=== PATIENT | male | born 1940 | race Caucasian/White ===

== ENCOUNTER → 2019-07-07 | Outpatient (CLI) | payer OTHER ==
[~2019-07-07] MED LIST: ACET325 PO; ASPI81CH PO; Prilosec Otc20 MG PO
[2019-07-07 13:10] LABS: Alanine Aminotransfer (ALT/SGP 24 U/L (12-78); Albumin, Blood 3.4 g/dL (3.4-5.0); Albumin/Globulin Ratio 1.1 (0.8-1.8); Alk Phos 86 U/L (50-136); Anion Gap 9 mmol/L (6-16); Aspartate Aminotrans (AST/SGOT 17 U/L (12-37); Bilirubin, Total 0.6 mg/dL (0.1-1.0); Blood Urea Nitrogen 8 mg/dL (8-24); Bun/Creatinine Ratio 13.8 (12.0-20.0); CO2, Blood 23 mmol/L (21-32); Calcium, Blood 8.4 mg/dL (8.5-10.1); Chloride, Blood 95 mmol/L (98-108); Creatinine, Blood 0.58 mg/dL (0.60-1.20); Globulin, Blood 3.1 g/dL (2.2-4.0); Glomerular Filtration Rate >60 (60-); Glucose, Blood 103 mg/dL (70-99); Potassium, Blood 4.3 mmol/L (3.5-5.5); Sodium, Blood 127 mmol/L (136-145); Total Protein, Blood 6.5 g/dL (6.4-8.2)
== END | disposition home or self-care (01) ==
LOC: LAB 09:45 → LAB SHORT 09:45
PROVIDERS: Internal Medicine Hematology & Oncology
DX: I10 Essential (primary) hypertension (principal); R53.81 Other malaise; R53.83 Other fatigue
CPT/HCPCS: 80053

== ENCOUNTER 2020-11-25 09:12 | Emergency (ER) | payer OTHER ==
[~2020-11-25] VITALS: Ht 180.3 cm; Wt 97.5 kg
== END 2020-11-25 10:42 | disposition home or self-care (01) ==
LOC: ER 09:12
DX: S70.02XA Contusion of left hip, initial encounter (principal); W01.198A Fall on same level from slipping, tripping and stumbling with subsequent striking against other object, initial encounter; Y93.01 Activity, walking, marching and hiking; Y92.828 Other wilderness area as the place of occurrence of the external cause
CPT/HCPCS: 73502; 99283-25

== ENCOUNTER 2021-09-26 10:17 | Emergency (ER) | payer OTHER ==
[~2021-09-26] VITALS: Ht 177.8 cm; Wt 97.5 kg
[2021-09-26 11:05] LABS: BASOPHILS ABSOLUTE AUTO 0.05 K/mm3 (0.00-0.23); BASOPHILS PERCENT AUTO 1 % (0-2); EOSINOPHILS ABSOLUTE AUTO 0.12 K/mm3 (0.00-0.68); EOSINOPHILS PERCENT AUTO 2 % (0-6); Hematocrit 42.9 % (37.0-53.0); IMMATURE GRAN ABSOLUTE AUTO 0.02 K/mm3 (0.00-0.10); IMMATURE GRAN PERCENT AUTO 0 % (0-1); LYMPHOCYTES ABSOLUTE AUTO 1.34 K/mm3 (0.84-5.20); LYMPHOCYTES PERCENT AUTO 19 % (21-46); MONOCYTES ABSOLUTE AUTO 0.68 K/mm3 (0.16-1.47); MONOCYTES PERCENT AUTO 10 % (4-13); Mean Corpuscular HGB 30.4 pg (26.0-34.0); Mean Corpuscular Volume 87 fL (80-100); Mean Platelet Volume 9.3 fL (9.1-12.4); NEUTROPHILS ABSOLUTE AUTO 4.97 K/mm3 (1.96-9.15); NEUTROPHILS PERCENT AUTO 69 % (41-73); Platelet Count 241 K/mm3 (150-400); RDW Coefficient Variation 13.3 % (11.7-14.2); RDW Standard Deviation 43.3 fL (35.1-46.3); Red Blood Cell Count 4.93 M/mm3 (4.30-5.90); White Blood Cell Count 7.18 K/mm3 (4.00-11.30)
[2021-09-26 11:31] LABS: Alanine Aminotransfer (ALT/SGP 30 U/L (12-78); Albumin, Blood 3.2 g/dL (3.4-5.0); Albumin/Globulin Ratio 0.8 (0.8-1.8); Alk Phos 68 U/L (50-136); Anion Gap 6 mmol/L (6-16); Aspartate Aminotrans (AST/SGOT 17 U/L (12-37); Bilirubin, Total 0.4 mg/dL (0.1-1.0); Blood Urea Nitrogen 11 mg/dL (8-24); Bun/Creatinine Ratio 17.7 (12.0-20.0); CO2, Blood 25 mmol/L (21-32); Chloride, Blood 100 mmol/L (98-108); Creatinine, Blood 0.62 mg/dL (0.60-1.20); Globulin, Blood 3.8 g/dL (2.2-4.0); Glomerular Filtration Rate >60 (60-); Glucose, Blood 103 mg/dL (70-99); Magnesium, Blood 1.8 mg/dL (1.6-2.4); Potassium, Blood 4.1 mmol/L (3.5-5.5); Sodium, Blood 131 mmol/L (136-145); Troponin I <0.015 ng/mL (0.000-0.040)
== END 2021-09-26 16:35 | disposition home or self-care (01) ==
LOC: ER 10:17
PROVIDERS: Physician Assistant
DX: R29.898 Other symptoms and signs involving the musculoskeletal system (principal); R06.02 Shortness of breath; E87.1 Hypo-osmolality and hyponatremia
CPT/HCPCS: 36415; 71046; 80053; 83735; 83880; 84484; 85025; 93005; 93010; 99284-25

== ENCOUNTER → 2021-10-05 | Outpatient (CLI) | payer OTHER ==
[2021-10-10 13:30] LABS: Potassium, Blood 4.9 mmol/L (3.5-5.5)
== END ==
LOC: LAB SHORT 10:00
PROVIDERS: Nurse Practitioner Family
DX: E87.1 Hypo-osmolality and hyponatremia (principal)
CPT/HCPCS: 80051

== ENCOUNTER 2021-11-17 15:00 | Inpatient (IN) | payer OTHER ==
[~2021-11-17] VITALS: Ht 177.8 cm; Wt 99.8 kg
[~2021-11-17 15:00] MED LIST changes: -CHLO25B PO; -CODACE30 PO; -CYCL10 PO; -MASOPHEN325 M3 PO; -MELO7.5 PO; -METHOTREXATE2.5 M6 PO; -SODCHL1 PO; -TAMSULOSIN HCL0.4 M1 PO
[2021-11-17] MEDS ORDERED: CODACE30 PO (15:47)
[2021-11-17] MEDS ORDERED: CHLO25B PO (15:48)
[2021-11-17] MEDS ORDERED: CYCL10 PO (15:48)
[2021-11-17] MEDS ORDERED: MELO7.5 PO (15:49)
[2021-11-17] MEDS ORDERED: METHOTREXATE2.5 M6 PO (15:55)
[2021-11-17] MEDS ORDERED: TAMSULOSIN HCL0.4 M1 PO (15:56)
[2021-11-17] MEDS ORDERED: SODCHL1 PO (15:56)
[2021-11-17] MEDS ORDERED: MASOPHEN325 M3 PO (15:57)
[2021-11-17 16:40] LABS: BASOPHILS ABSOLUTE AUTO 0.02 K/mm3 (0.00-0.23); BASOPHILS PERCENT AUTO 0 % (0-2); EOSINOPHILS ABSOLUTE AUTO 0.03 K/mm3 (0.00-0.68); EOSINOPHILS PERCENT AUTO 0 % (0-6); Hematocrit 40.8 % (37.0-53.0); Hemoglobin 15.3 g/dL (13.5-17.5); IMMATURE GRAN ABSOLUTE AUTO 0.06 K/mm3 (0.00-0.10); IMMATURE GRAN PERCENT AUTO 1 % (0-1); LYMPHOCYTES ABSOLUTE AUTO 1.03 K/mm3 (0.84-5.20); LYMPHOCYTES PERCENT AUTO 8 % (21-46); MONOCYTES ABSOLUTE AUTO 1.08 K/mm3 (0.16-1.47); MONOCYTES PERCENT AUTO 8 % (4-13); Mean Corpuscular HGB 30.1 pg (26.0-34.0); Mean Corpuscular HGB Conc 37.5 g/dL (31.5-36.5); Mean Corpuscular Volume 80 fL (80-100); Mean Platelet Volume 9.3 fL (9.1-12.4); NEUTROPHILS ABSOLUTE AUTO 10.94 K/mm3 (1.96-9.15); NEUTROPHILS PERCENT AUTO 83 % (41-73); Platelet Count 175 K/mm3 (150-400); RDW Coefficient Variation 12.3 % (11.7-14.2); RDW Standard Deviation 35.5 fL (35.1-46.3); Red Blood Cell Count 5.08 M/mm3 (4.30-5.90); White Blood Cell Count 13.16 K/mm3 (4.00-11.30)
[2021-11-17 17:13] LABS: Magnesium, Blood 1.8 mg/dL (1.6-2.4); Troponin I <0.015 ng/mL (0.000-0.040)
[2021-11-17 17:18] LABS: Influenza A, PCR NEGATIVE (NEGATIVE); Influenza B, PCR NEGATIVE (NEGATIVE); Resp Syncytial Virus, PCR NEGATIVE (NEGATIVE)
[2021-11-17 17:30] LABS: Albumin, Blood 2.9 g/dL (3.4-5.0); Anion Gap 12 mmol/L (6-16); Blood Urea Nitrogen 11 mg/dL (8-24); Bun/Creatinine Ratio 20.3 (12.0-20.0); CO2, Blood 21 mmol/L (21-32); Calcium, Blood 8.1 mg/dL (8.5-10.1); Chloride, Blood 83 mmol/L (98-108); Creatinine, Blood 0.54 mg/dL (0.60-1.20); Glomerular Filtration Rate >60 (60-); Glucose, Blood 125 mg/dL (70-99); Phosphorus, Blood 2.5 mg/dL (2.5-4.9); Potassium, Blood 2.8 mmol/L (3.5-5.5); Sodium, Blood 116 mmol/L (136-145)
[2021-11-17 17:43] LABS: SARS-Cov-2 (COVID-19) PCR, MMC POSITIVE (NEGATIVE)
[2021-11-17 17:48] LABS: Uric Acid, Blood 2.2 mg/dL (3.5-7.2)
[2021-11-17 17:49] LABS: Thyroid Stimulating Hormone 1.17 uIU/mL (0.360-4.800)
--- NOTE | 2021-11-17 18:48 | NUR ---
PT ARRIVED TO ROOM, ASSISTED TO BED WITH X2 ASSIST. PT IS PLEASANT, APPEARS FORGETFUL, BED ALARM ON. IV FLUIDS AND K+ RUNNING PER EMAR. PT PROVIDED WITH SNACKS. ON ROOM AIR, O2 >95%, INTERMITTENT COUGH. LUNG SOUNDS DIM IN ALL [place], CAP REFILL WNL ON ALL EXTREMITIES, PUPILS WNL. CALL LIGHT WITHIN REACH, WCTM.
[2021-11-17 21:20] LABS: Albumin, Blood 3.2 g/dL (3.4-5.0); Anion Gap 13 mmol/L (6-16); Blood Urea Nitrogen 10 mg/dL (8-24); Bun/Creatinine Ratio 17.3 (12.0-20.0); CO2, Blood 25 mmol/L (21-32); Calcium, Blood 8.8 mg/dL (8.5-10.1); Chloride, Blood 84 mmol/L (98-108); Creatinine, Blood 0.58 mg/dL (0.60-1.20); Glomerular Filtration Rate >60 (60-); Glucose, Blood 131 mg/dL (70-99); Phosphorus, Blood 2.4 mg/dL (2.5-4.9); Potassium, Blood 2.8 mmol/L (3.5-5.5); Sodium, Blood 122 mmol/L (136-145)
[2021-11-18 01:38] LABS: Anion Gap 11 mmol/L (6-16); Blood Urea Nitrogen 11 mg/dL (8-24); Bun/Creatinine Ratio 18.6 (12.0-20.0); CO2, Blood 26 mmol/L (21-32); Calcium, Blood 8.5 mg/dL (8.5-10.1); Chloride, Blood 88 mmol/L (98-108); Creatinine, Blood 0.59 mg/dL (0.60-1.20); Glomerular Filtration Rate >60 (60-); Glucose, Blood 109 mg/dL (70-99); Phosphorus, Blood 2.4 mg/dL (2.5-4.9); Potassium, Blood 3.2 mmol/L (3.5-5.5); Sodium, Blood 125 mmol/L (136-145)
[2021-11-18 05:04] LABS: Albumin, Blood 3.3 g/dL (3.4-5.0); Anion Gap 7 mmol/L (6-16); Blood Urea Nitrogen 9 mg/dL (8-24); Bun/Creatinine Ratio 13.8 (12.0-20.0); CO2, Blood 30 mmol/L (21-32); Chloride, Blood 86 mmol/L (98-108); Creatinine, Blood 0.65 mg/dL (0.60-1.20); Glomerular Filtration Rate >60 (60-); Glucose, Blood 121 mg/dL (70-99); Phosphorus, Blood 2.1 mg/dL (2.5-4.9); Potassium, Blood 3.2 mmol/L (3.5-5.5); Sodium, Blood 123 mmol/L (136-145)
--- NOTE | 2021-11-18 06:19 | NUR ---
SHIFT SUMMARY ASSUMED CARE OF PT AT 1900. PT HAS BECOME MORE ORIENTED SINCE THE START OF SHIFT. PT STATES HE IS FEELING MUCH BETTER. PT IS ABLE TO STAND AT BEDSIDE NOW AND USE THE URINAL UNASSISTED, WHERE BEFORE HE NEEDED 1P MINIMAL ASSIST. PT BP WAS SLIGHTLY ELEVATED AT START OF SHIFT BUT AFTER GIVEN AIN MEDCATION FOR PT ARTHRITIS PT WAS ABLE TO SLEEP BETTER AND BP DECREASED. PT REMAINED ON RA. 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 DR DOAN WAS CALLED SEVERAL TIMES WITH STAT SODIUM LEVELS AND WATCHING CLOSELY, ALONG WITH CHANGING MEDICATIONS TO FIT TREATMENT. CALL LIGHT IN REACH, BED IN LOWEST POSITION.
--- NOTE | 2021-11-19 01:13 | NUR ---
ASSUMED CARE OF PT AT 1900. A/OX4. NEURO'S WNL. REPORTS NO PAIN, CP/PRESSURE. MAINTAINS ABOVE 95% ON RA. LS CLEAR T/O. SINUS ON TELE AVG 76. FAINT PULSES T/O. WILL UPDATE CHANGES OCCUR.
[2021-11-19 03:36] LABS: BASOPHILS ABSOLUTE AUTO 0.05 K/mm3 (0.00-0.23); BASOPHILS PERCENT AUTO 1 % (0-2); EOSINOPHILS ABSOLUTE AUTO 0.08 K/mm3 (0.00-0.68); EOSINOPHILS PERCENT AUTO 1 % (0-6); Hematocrit 39.7 % (37.0-53.0); Hemoglobin 14.5 g/dL (13.5-17.5); IMMATURE GRAN ABSOLUTE AUTO 0.09 K/mm3 (0.00-0.10); IMMATURE GRAN PERCENT AUTO 1 % (0-1); LYMPHOCYTES ABSOLUTE AUTO 1.23 K/mm3 (0.84-5.20); LYMPHOCYTES PERCENT AUTO 15 % (21-46); MONOCYTES ABSOLUTE AUTO 1.08 K/mm3 (0.16-1.47); MONOCYTES PERCENT AUTO 14 % (4-13); Mean Corpuscular HGB 30.3 pg (26.0-34.0); Mean Corpuscular HGB Conc 36.5 g/dL (31.5-36.5); Mean Corpuscular Volume 83 fL (80-100); Mean Platelet Volume 9.5 fL (9.1-12.4); NEUTROPHILS ABSOLUTE AUTO 5.45 K/mm3 (1.96-9.15); NEUTROPHILS PERCENT AUTO 68 % (41-73); Platelet Count 179 K/mm3 (150-400); RDW Coefficient Variation 12.8 % (11.7-14.2); Red Blood Cell Count 4.78 M/mm3 (4.30-5.90); White Blood Cell Count 7.98 K/mm3 (4.00-11.30)
[2021-11-19 03:55] LABS: Albumin, Blood 2.8 g/dL (3.4-5.0); Anion Gap 7 mmol/L (6-16); Blood Urea Nitrogen 13 mg/dL (8-24); Bun/Creatinine Ratio 17.7 (12.0-20.0); CO2, Blood 27 mmol/L (21-32); Calcium, Blood 8.6 mg/dL (8.5-10.1); Chloride, Blood 92 mmol/L (98-108); Creatinine, Blood 0.74 mg/dL (0.60-1.20); Glomerular Filtration Rate >60 (60-); Glucose, Blood 105 mg/dL (70-99); Magnesium, Blood 1.9 mg/dL (1.6-2.4); Phosphorus, Blood 2.7 mg/dL (2.5-4.9); Potassium, Blood 3.3 mmol/L (3.5-5.5); Sodium, Blood 126 mmol/L (136-145)
[2021-11-19 15:14] LABS: Albumin, Blood 2.8 g/dL (3.4-5.0); Anion Gap 10 mmol/L (6-16); Blood Urea Nitrogen 12 mg/dL (8-24); Bun/Creatinine Ratio 20.5 (12.0-20.0); CO2, Blood 26 mmol/L (21-32); Calcium, Blood 8.5 mg/dL (8.5-10.1); Chloride, Blood 94 mmol/L (98-108); Creatinine, Blood 0.59 mg/dL (0.60-1.20); Glomerular Filtration Rate >60 (60-); Glucose, Blood 101 mg/dL (70-99); Phosphorus, Blood 2.8 mg/dL (2.5-4.9); Potassium, Blood 3.6 mmol/L (3.5-5.5); Sodium, Blood 130 mmol/L (136-145)
--- NOTE | 2021-11-19 23:21 | NUR ---
ASSUMED CARE OF PT AT 1900. A/OX4. NEURO'S WNL. REPORTS NO PAIN, CP/PRESSURE. MAINTAINS ABOVE 95% ON RA. LS CLEAR T/O. VSS. FAINT PULSES T/O. PATIENT FEELING READY AND WANTS TO GO HOME TOMORROW. RE-EDUCATED NEED TO CONTINUE TAKING PRESCRIBED MEDS. WILL UPDATE CHANGES OCCUR.
[2021-11-20 04:28] LABS: Anion Gap 8 mmol/L (6-16); Blood Urea Nitrogen 11 mg/dL (8-24); Bun/Creatinine Ratio 17.9 (12.0-20.0); CO2, Blood 28 mmol/L (21-32); Calcium, Blood 8.6 mg/dL (8.5-10.1); Chloride, Blood 94 mmol/L (98-108); Creatinine, Blood 0.62 mg/dL (0.60-1.20); Glomerular Filtration Rate >60 (60-); Glucose, Blood 96 mg/dL (70-99); Potassium, Blood 3.6 mmol/L (3.5-5.5); Sodium, Blood 130 mmol/L (136-145)
--- NOTE | 2021-11-20 12:47 | NUR ---
PT DISCHARGED HOME. DISCHARGE INSTRUCTION PROVIDED, PT VERBALIZED UNDERSTANDING. PT IN NO APPARENT DISTRESS AT THIS TIME. ALL BELONGINGS SENT WITH PT AND SPOUSE.
== END 2021-11-20 12:50 | disposition home or self-care (01) | DRG 640 ==
LOC: ER 15:00 → ERHOLD 16:41 → PCU 16:41
PROVIDERS: Emergency Medicine; Internal Medicine; Internal Medicine Nephrology; ADMIT Internal Medicine
PROC: 8E0ZXY6 Isolation (ICD-10-PCS; principal; 2021-11-17)
DX: E87.1 Hypo-osmolality and hyponatremia (principal); U07.1 COVID-19; I12.9 Hypertensive chronic kidney disease with stage 1 through stage 4 chronic kidney disease, or unspecified chronic kidney disease; N18.2 Chronic kidney disease, stage 2 (mild); M06.9 Rheumatoid arthritis, unspecified; R11.2 Nausea with vomiting, unspecified; E83.39 Other disorders of phosphorus metabolism; E87.6 Hypokalemia; E88.09 Other disorders of plasma-protein metabolism, not elsewhere classified; N40.0 Benign prostatic hyperplasia without lower urinary tract symptoms; Z90.49 Acquired absence of other specified parts of digestive tract; Z98.890 Other specified postprocedural states
CPT/HCPCS: 0241U; 36415; 71045; 80048; 80069; 82533; 83735; 83930; 84295; 84443; 84484; 84550; 85025; 93005; 93010; 94760; 97110; 97162; 97166; 97530; 99285-25; A9270; J1650; J3480; J7030; J8610

== ENCOUNTER → 2021-11-17 | Outpatient (CLI) | payer OTHER ==
[~2021-11-17] MED LIST changes: +CHLO25B PO; +CODACE30 PO; +CYCL10 PO; +MASOPHEN325 M3 PO; +MELO7.5 PO; +METHOTREXATE2.5 M6 PO; +SODCHL1 PO; +TAMSULOSIN HCL0.4 M1 PO
[2021-11-17 14:33] LABS: Alanine Aminotransfer (ALT/SGP 51 U/L (12-78); Albumin, Blood 3.5 g/dL (3.4-5.0); Albumin/Globulin Ratio 1.2 (0.8-1.8); Alk Phos 102 U/L (40-126); Anion Gap 8 mmol/L (6-16); Aspartate Aminotrans (AST/SGOT 34 U/L (12-37); Bilirubin, Total 0.8 mg/dL (0.1-1.0); Blood Urea Nitrogen 13 mg/dL (8-24); Bun/Creatinine Ratio 18.1 (12.0-20.0); CO2, Blood 26 mmol/L (21-32); Calcium, Blood 8.8 mg/dL (8.5-10.1); Chloride, Blood 81 mmol/L (98-108); Creatinine, Blood 0.72 mg/dL (0.60-1.20); Globulin, Blood 2.9 g/dL (2.2-4.0); Glomerular Filtration Rate >60 (60-); Glucose, Blood 126 mg/dL (70-99); Potassium, Blood 3.1 mmol/L (3.5-5.5); Thyroid Stimulating Hormone 1.648 uIU/mL (0.360-4.800); Total Protein, Blood 6.4 g/dL (6.4-8.2)
[2021-11-17 14:36] LABS: Sodium, Blood 115 mmol/L (136-145)
[2021-11-17 16:28] LABS: BASOPHILS ABSOLUTE AUTO 0.04 K/mm3 (0.00-0.23); BASOPHILS PERCENT AUTO 0 % (0-2); EOSINOPHILS ABSOLUTE AUTO 0.04 K/mm3 (0.00-0.68); EOSINOPHILS PERCENT AUTO 0 % (0-6); Hematocrit 40.2 % (37.0-53.0); IMMATURE GRAN ABSOLUTE AUTO 0.09 K/mm3 (0.00-0.10); IMMATURE GRAN PERCENT AUTO 1 % (0-1); LYMPHOCYTES ABSOLUTE AUTO 1.07 K/mm3 (0.84-5.20); LYMPHOCYTES PERCENT AUTO 9 % (21-46); MONOCYTES ABSOLUTE AUTO 1.04 K/mm3 (0.16-1.47); MONOCYTES PERCENT AUTO 8 % (4-13); Mean Corpuscular Volume 81 fL (80-100); Mean Platelet Volume 9.6 fL (9.1-12.4); NEUTROPHILS ABSOLUTE AUTO 10.17 K/mm3 (1.96-9.15); NEUTROPHILS PERCENT AUTO 82 % (41-73); Platelet Count 170 K/mm3 (150-400); RDW Coefficient Variation 12.4 % (11.7-14.2); RDW Standard Deviation 35.9 fL (35.1-46.3); Red Blood Cell Count 4.99 M/mm3 (4.30-5.90); White Blood Cell Count 12.45 K/mm3 (4.00-11.30)
[2021-11-17 16:29] LABS: Hemoglobin 15.1 g/dL (13.5-17.5); Mean Corpuscular HGB 30.3 pg (26.0-34.0)
[2021-11-17 16:49] LABS: Mean Corpuscular HGB Conc 37.6 g/dL (31.5-36.5)
== END | disposition home or self-care (01) ==
LOC: LAB SHORT 14:09
PROVIDERS: General Practice
DX: R53.81 Other malaise (principal)
CPT/HCPCS: 80053; 84443; 85025; 85379

== ENCOUNTER → 2022-09-25 | Outpatient (CLI) | payer OTHER ==
[~2022-09-25] MED LIST changes: +CHLO25B PO; +CODACE30 PO; +CYCL10 PO; +MASOPHEN325 M3 PO; +MELO7.5 PO; +METHOTREXATE2.5 M6 PO; +SODCHL1 PO; +TAMSULOSIN HCL0.4 M1 PO
[2022-09-25 19:45] LABS: Potassium, Blood 4.3 mmol/L (3.5-5.5)
== END | disposition home or self-care (01) ==
LOC: LAB 17:43 → LAB SHORT 17:43
PROVIDERS: Family Medicine
DX: E87.1 Hypo-osmolality and hyponatremia (principal)
CPT/HCPCS: 80051

== ENCOUNTER → 2022-12-27 | Outpatient (CLI) | payer OTHER ==
[2022-12-27 19:33] LABS: Calcium, Blood 9.1 mg/dL (8.5-10.1); Creatinine, Blood 0.72 mg/dL (0.60-1.20); Potassium, Blood 4.2 mmol/L (3.5-5.5)
== END | disposition home or self-care (01) ==
LOC: LAB SHORT 15:15
PROVIDERS: Nurse Practitioner Family
DX: E87.1 Hypo-osmolality and hyponatremia (principal)
CPT/HCPCS: 80048

== ENCOUNTER → 2023-07-02 | Outpatient (CLI) | payer OTHER ==
[2023-07-02 18:34] LABS: Bun/Creatinine Ratio 18.7 (12.0-20.0); Calcium, Blood 9.4 mg/dL (8.5-10.1); Creatinine, Blood 0.7 mg/dL (0.60-1.20); Potassium, Blood 4.2 mmol/L (3.5-5.5)
== END | disposition home or self-care (01) ==
LOC: LAB SHORT 14:50 → LAB 14:50 → LAB FUT 07-02 15:10 → EDSTATUS 07-02 15:10
PROVIDERS: Nurse Practitioner Family
DX: E87.1 Hypo-osmolality and hyponatremia (principal)
CPT/HCPCS: 80048

== ENCOUNTER → 2023-09-28 | Outpatient (CLI) | payer OTHER ==
[2023-09-28 16:15] LABS: Bun/Creatinine Ratio 14.5 (12.0-20.0); Calcium, Blood 8.8 mg/dL (8.5-10.1); Creatinine, Blood 0.83 mg/dL (0.60-1.20); Potassium, Blood 4.5 mmol/L (3.5-5.5)
== END | disposition home or self-care (01) ==
LOC: LAB 14:16 → LAB SHORT 14:16
PROVIDERS: Nurse Practitioner Family
DX: E87.1 Hypo-osmolality and hyponatremia (principal)
CPT/HCPCS: 80048

== ENCOUNTER 2024-03-17 10:16 | Emergency (ER) | payer OTHER ==
[~2024-03-17] VITALS: Ht 180.3 cm; Wt 97.5 kg
[2024-03-17 12:39] VITALS: BP 138/87
== END 2024-03-17 13:02 | disposition home or self-care (01) ==
LOC: ER 10:16
DX: R51.9 Headache, unspecified (principal); Z79.899 Other long term (current) drug therapy